=== PATIENT | male | born 2000 | race Caucasian/White ===

== ENCOUNTER 2022-07-05 21:41 | Emergency (ER) | payer OTHER, SELFPAY ==
[2022-07-05 21:48] VITALS: BP 137/75; PULSE 89; RESP 18; TEMP 36.8; O2SAT 99; BMI 23.4
[2022-07-05] MEDS: lidocaine HCL 2 % MULTIDOSE 20 ML VIAL INJECTION (22:50)
--- NOTE | 2022-07-05 23:57 | ED.GENADULT ---
HPI - General Adult General Chief complaint: Laceration/Wound Stated complaint: Sliced open R pinky toe Time Seen by Provider: 07/05/22 21:44 History of Present Illness HPI narrative: 21-year-old young man with concern of laceration to his right 5th toe. He is also incidentally noted to have sustained an abrasion to his left ankle. Apparently horsing around in a dorm room during football camp. Unclear ways cut his foot on. Apparently bled quite a bit. Otherwise feeling well. No bleeding problems. Concerned that bone was visible. Has been able to ambulate. Related Data Home Medications Medication Instructions Recorded Confirmed No Known Home Medications 07/05/22 07/05/22 Allergies Allergy/AdvReac Type Severity Reaction Status Date / Time No Known Drug Allergies Allergy Verified 07/05/22 21:50 Review of Systems Status of ROS: Reports: 6 or more systems reviewed and unremarkable except as noted in History and below [facility] Medical History No significant past medical history Surgical History (Updated 07/05/22 @ 23:10 by Anjum Rivera RN) No significant past surgical history Social History Smoking Status: Never smoker Second hand tobacco smoke exposure: No How often do you have a drink containing alcohol: never How often do you have six or more drinks on one occasion: Never AUDIT-C Alcohol total score: 0 Non-prescribed substance use: denies use Exam Narrative: Exam Narrative: Pleasant. Well built. NAD. Breathing easily. Has a deep laceration about 2.5 cm in length on the plantar surface on the crease of the MTP joint of the 5th toe of the right foot. Also with a scrape over the lateral malleolus of the left ankle. Uppermost capsular layers/fibrous layers but to be visible in the toe laceration. Digital block placed with lidocaine around the 5th toe. This results in fairly good anesthesia though ultimately with repair the most proximal aspect still had some sensation noted on the last 2 sutures. Const: Vital Signs, click to edit/add: Vital Signs - 24 hr 07/05/22 21:48 Temperature 98.2 F Pulse Rate [Right Pulse Oximeter] 89 Respiratory Rate 18 Blood Pressure [Ri ght Upper Arm] 137/75 Pulse Oximetry 99 Oxygen Delivery Me thod Room Air Documenting provider has reviewed patient's vital signs: yes Course Vital Signs Vital signs: Initial Vital Signs Temperature 98.2 F 07/05/22 21:48 Temperature Source Temporal Artery Scan 07/05/22 21:48 Pulse Rate 89 07/05/22 21:48 Respiratory Rate 18 07/05/22 21:48 Blood Pressure 137/75 07/05/22 21:48 Blood Pressure Mean 95 07/05/22 21:48 Blood Pressure Position Sitting 07/05/22 21:48 Pulse Oximetry 99 07/05/22 21:48 Oxygen Delivery Method Room Air 07/05/22 21:48 Vital Signs Temperature 98.2 F 07/05/22 21:48 Pulse Rate 89 07/05/22 21:48 Respiratory Rate 18 07/05/22 21:48 Blood Pressure 137/75 07/05/22 21:48 Pulse Oximetry 99 07/05/22 21:48 Oxygen Delivery Method Room Air 07/05/22 21:48 Temperature 98.4 F 07/06/22 00:07 Pulse Rate 80 07/06/22 00:07 Respiratory Rate 18 07/06/22 00:07 Blood Pressure 125/74 07/06/22 00:07 Pulse Oximetry 99 07/06/22 00:06 Oxygen Delivery Method Room Air 07/06/22 00:06 Medical Decision Making MDM Narrative Medical decision making narrative: Repair being on the plantar foot to carefully clean this wound. It is a relatively clean wound. May have been split open. Though this will require some extensive dorsiflexion and I do not see evidence of bony abnormality in that regard. Digitally blocked as noted above. Cleansed extensively with Hibiclens and water solution by myself. Scrubbed also the abrasion on the outer left ankle. To the ankle antibiotic ointment and Band-Aid was placed. To the right 5th toe this was little difficult to repair deep in this flexion crease at the MTP joint. Placed total of 5 interrupted Ethilon sutures with good wound approximation and control of bleeding. Antibiotic ointment and bandage placed. While I doubt tetanus exposure certainly valuable to for pertussis and diphtheria. We did offer vaccination as is in year 9. He declined preferring to follow up later. See patient discharge plan Discharge Plan Discharge Clinical Impression: Abrasion, Laceration of toe Patient Disposition: Home, Self-Care Condition: Improved Additional Instructions: Can clean up initially as needed. Sutures out in? 10-12 days. Okay to get wet but avoid soaking while sutures are in. Take care to dry this area after showering. Antibiotic ointment for 5 days and then to a dry bandage. Report spreading redness after 2 days, marked increase in pain or swelling, purulent drainage, fever. for scar reduction/wound healing if desired, of course with reference to the outer left ankle-- after scab falls, can apply daily vitamin e oil, emu oil or silicone-containing ointments or bandages.? in particular, protect from the sun for the first 9 - 12 months. Tdap/tetanus due next year. Prescriptions: No Action No Known Home Medications Follow Up/Referrals: Provider,Not a Local [Primary Care Provider] - Stand Alone Forms: [email or web address] Info Instructions
[2022-07-06 00:06] VITALS: BP 125/74; PULSE 80; RESP 18; TEMP 36.9; O2SAT 99
[2022-07-06 00:07] VITALS: BP 125/74; PULSE 80; RESP 18; TEMP 36.9
== END 2022-07-06 00:08 | disposition home or self-care (01) ==
PROVIDERS: Emergency Provider Family Medicine
DX: S91.114A Laceration without foreign body of right lesser toe(s) without damage to nail, initial encounter (principal); Y93.83 Activity, rough housing and horseplay
CPT/HCPCS: 12001; 99283; 99284

== ENCOUNTER 2024-03-01 03:05 | Emergency (ER) | payer OTHER, SELFPAY ==
[2024-03-01] VITALS (8 sets, daily range): BP systolic 112–136; BP diastolic 59–76; PULSE 92–98; RESP 16–18; O2SAT 97–99; BMI 21.9
--- NOTE | 2024-03-01 03:08 | ED.GENADULT ---
HPI - General Adult General Time Seen by Provider: 03:08 Date Seen: 03/01/24 Chief complaint: Nausea/Vomiting Stated complaint: Vomiting Time Seen by Provider: 03/01/24 03:08 Source: patient Mode of arrival: ambulatory Limitations: no limitations History of Present Illness HPI narrative: 23-year-old male who comes in today with vomiting back pain. Patient has been vomiting for about the last 8 hours, no hematemesis. Did have couple of loose stools. Complains of generalized low back pain. Denies urinary symptoms. No fever, chills, runny nose, cough, or sore throat. No known ill contacts. Complains mainly of pain in the hips and low back. Related Data Home Medications ?Medication ?Instructions ?Recorded ?Confirmed No Known Home Medications 07/05/22 03/01/24 Allergies Allergy/AdvReac Type Severity Reaction Status Date / Time No Known Drug Allergies Allergy Verified 03/01/24 03:14 PFSH PFS Medical History No significant past medical history Surgical History (Updated 07/05/22 @ 23:10 by Anjum Rivera RN) No significant past surgical history Social History Smoking Status: Never smoker Do you use any of these nicotine containing products: None Second hand tobacco smoke exposure: No How often do you have a drink containing alcohol: never How often do you have six or more drinks on one occasion: Never AUDIT-C Alcohol total score: 0 Non-prescribed substance use: denies use Exam Narrative: Exam Narrative: General: Well-developed and well-nourished, no acute distress Head: Atraumatic and normocephalic Eyes: Pupils are equal reactive, extraocular motions intact, conjunctiva clear ENT: External nose and ears are normal, posterior pharynx without erythema or exudate Neck: No midline cervical tenderness, full spontaneous range of motion the neck, trachea midline, no adenopathy Heart: Regular rate and rhythm no murmurs or thrills Lungs: Clear to auscultation bilaterally without wheezes or crackles Abdomen: Soft, nontender, nondistended with active bowel sounds Musculoskeletal: No tenderness, deformity, or edema Neurologic: Awake, alert, and oriented x3, no gross focal neurologic deficits, cranial nerves intact as tested Psych: Mood and affect are appropriate Skin: No rashes Const: Vital Signs, click to edit/add: Vital Signs - 24 hr 03/01/24 03:10 03/01/24 03:15 03/01/24 03:31 Pulse Rate 98 96 Pulse Rate [Pulse Oximeter] 97 Respiratory Rate 18 18 18 Blood Pressure 136/73 112/76 Blood Pressure [Ri ght Upper Arm] 136/73 Pulse Oximetry 97 97 98 Oxygen Delivery Me thod Room Air Room Air Room Air Course Course ED Course: Reviewed prior primary care visit from February 2022 which was a general physical exam, no acute concerns. Patient presents today with nausea vomiting, low back pain and hip pain along with body aches. On exam here, patient's widely stable, heart rate 97 which for this patient likely does represent a mild tachycardia. Posterior pharynx without erythema or exudate, no cervical adenopathy, lungs are clear, heart is regular, no abdominal tenderness, no CVA tenderness. Likely gastroenteritis, no evidence for acute cholecystitis or acute appendicitis on exam. Fluids, Toradol, Zofran, and labs are ordered. Anticipate discharge. Reevaluation(s) Time of Reevaluation #1: 04:12 Reevaluation #1: Labs ordered in pill interpreted with by me with normal basic panel, normal hepatic panel, normal magnesium. Patient is feeling better and is stable for discharge. Vital Signs Vital signs: Initial Vital Signs Temperature Source Temporal Artery Scan 03/01/24 03:10 Pulse Rate 97 03/01/24 03:10 Respiratory Rate 18 03/01/24 03:10 Blood Pressure 136/73 03/01/24 03:10 Blood Pressure Mean 94 03/01/24 03:10 Blood Pressure Position Supine 03/01/24 03:10 Pulse Oximetry 97 03/01/24 03:10 Oxygen Delivery Method Room Air 03/01/24 03:10 Vital Signs Pulse Rate 97 03/01/24 03:10 Respiratory Rate 18 03/01/24 03:10 Blood Pressure 136/73 03/01/24 03:10 Pulse Oximetry 97 03/01/24 03:10 Oxygen Delivery Method Room Air 03/01/24 03:10 Pulse Rate 96 03/01/24 03:31 Respiratory Rate 18 03/01/24 03:31 Blood Pressure 112/76 03/01/24 03:31 Pulse Oximetry 98 03/01/24 03:31 Oxygen Delivery Method Room Air 03/01/24 03:31 Medications Administered Medications: Generic Name Dose Route Start Last Admin Trade Name Samuel PRN Reason Stop Dose Admin Sodium Chloride 1,000 mls @ 1,000 mls/hr 03/01/24 03:30 03/01/24 03:39 0.9 % Sodium Chloride 1000 Ml IV 03/01/24 04:29 1,000 mls/hr .Q1H RADHA Administration Ketorolac Tromethamine 15 mg 03/01/24 03:26 03/01/24 03:40 Ketorolac 15 Mg/Ml Inj IVP 03/01/24 03:27 15 mg ONCE ONE Administration Ondansetron HCl 4 mg 03/01/24 03:26 03/01/24 03:40 Ondansetron 2 Mg/Ml Inj IVP 03/01/24 03:27 4 mg ONCE ONE Administration Medical Decision Making Lab Data Labs: Lab Results 03/01/24 Range/Units 03:45 Sodium 134 L (135-149) mmol/L Potassium 3.8 (3.6-5.1) mmol/L Chloride 101 (96-114) mmol/L Carbon Dioxide 24 (20-32) mmol/L Anion Gap 9 (7-15) mEq/L BUN 21 (5-24) mg/dL Creatinine 0.9 (0.5-1.5) mg/dL Estimated Creat Clear 144.55 Estimated GFR 124 ml/min Glucose 122 H (60-115) mg/dL Calcium 9.0 (8.4-10.6) mg/dL Magnesium 1.7 (1.5-2.6) mg/dL Total Bilirubin 1.3 (0.1-1.5) mg/dL Direct Bilirubin 0.2 (0.0-0.5) mg/dL AST 24 (12-35) U/L ALT 19 (4-50) U/L Alkaline Phosphatase 62 (40-150) U/L Total Protein 6.9 (6.0-8.3) g/dL Albumin 4.3 (3.3-5.0) g/dL Discharge Plan Discharge Clinical Impression: Vomiting, Myalgia Patient Disposition: Home, Self-Care Condition: Stable Instructions: Acute Nausea and Vomiting (DC) Additional Instructions: Liquid diet for 24 hours, activity as tolerated Zofran as needed for nausea and vomiting Activity Level: Activity as Tolerated Discharge Diet: Full Liquid Prescriptions: No Action No Known Home Medications Follow Up/Referrals: Provider,Not a Local [Primary Care Provider] - Stand Alone Forms: [employer] Info Instructions
--- OUTSIDE RECORDS SUMMARY | 2024-03-01 03:08 | XMS_ITS | Encounter Summary ---
Author Organization [facility] Address [address] [place] [address] Care Team Providers Care Generation Engineer Name Role Phone Raghu Cervantes MD Primary Care Provider [phone] Reason for Visit * Reason Comments VOMITING Encounter Details Date Type Department Care Team (Late st Contact Info) Description 03/01/2024 Nurse Triage [facility] [address] [place] [address] Raghu Cervantes MD [facility] [place] [address] VOMITING Social History Tobacco Use Types Packs/Day Years Used Date Smoking Tobacco: Never Smokeless Tobacco: Never PHQ-2 Answer Date Recorded PHQ-2 Score 0 03/20/2022 Sex and Gender Information Value Date Recorded Sex Assigned at Not on file Gender Identity Not on file Sexual Orientation Not on file documented as of this encounter Nursing Notes * Quang Silva, RN - 03/01/2024 2:37 AM CST Pt's mother calling with pt on the phone as well. Pt is currently at college. Onset at 2030 last evening of severe abd pain and has vomited x 6. Having severe bodyaches, hip and upper leg pain. Mild diarrhea. Afebrile and denies vomiting blood or bile, blood in stool, or other symptoms. Has been trying to drink fluids but will vomit soon after drinking. Took ibuprofen for the body pain and vomited up medication soon after taking. Reviewed home management and advised to be seen per protocol. Pt agrees with plan. Problem list, allergies, and medications reviewed. Reason for Disposition [1] Constant abdominal pain AND [2] present > 2 hours ??? Patient sounds very sick or weak to the triager Protocols used: [id number] AL BINDER documented in this encounter Plan of Treatment Not on file documented as of this encounter Visit Diagnoses Not on filedocumented in this encounter Care Teams Generation Engineer Relationship Specialty Start Date End Date Raghu Cervantes MD [address] [place] [address] PCP - General Pediatric Medicine 10/17/18 documented as of this encounter
--- OUTSIDE RECORDS SUMMARY | 2024-03-01 03:08 | XMS_ITS | Clinical Summary ---
Author Organization [facility] Address [address] [place] [address] Care Team Providers Care Chemist Organic Name Role Phone Raghu Cervantes MD Primary Care Provider [phone] Source Comments You are receiving this document as you are listed as the primary care provider,follow-up provider, or the patient has been referred to you for consultation.This is in compliance with the Medicare andSumma Healthcaid EHR Incentive Program,which states Providers who transition their patient to another setting of careor provider of care or refers their patient to another provider of care shouldprovide summary care record for each transition of care or referral. Medication [facility]PartDragonRAD Allergies No known active allergies Medications Medication Sig Dispensed Refills Start Date End Date Status triamcinolone acetonide (KENALOG) 0.1 % cream Apply two times a day as needed to affected areas. 454 g 1 03/19/2019 Active Additional Information Patient not taking.Reported on 08/15/2019 methylPREDNISolone (MEDROL 21 TABLET DOSEPACK) 4 MG tablet Follow package directions 21 Tablet 01/15/2021 Active Active Problems Problem Noted Date Diagnosed Date Generalized anxiety disorder 11/02/2023 History of COVID-19 09/22/2020 Overview (09/22/2020): 05/16 with sore throat, stuffiness, short fever. Symptoms over in about 1 week. No chest pain at the time. Since that time, he has completely recovered. Temporomandibular disorder 10/29/2019 Encounters Date Type Department Care Team Description 03/01/2024 Nurse Triage [facility] [address] [place] [address] Raghu Cervantes MD VOMITING from Last 3 Months Immunizations Name Administration Dates Next Due 9vHPV (Gardasil 9) 03/17/2015,02/25/2014, 014 DTaP 10/17/2006, 4,05/20/2002,02/11,2001 Flu Vac (3+ yrs) 03/30/2006,12/23/2004, 4 Flu Vac Preserv Free (3+yrs) 11/27/2008,11/22/19 08,01/09/2007 H1n1 Miv Sanofi 3+ Yr (Injected) 02/15/2009,12/27,01/14/2009 HepA Ped/Adol (1-18 yrs) 03/17/2015,12/24/2013 HepB Ped/Adol (0-18 yrs) 05/20/2002,02/11/2002,1 Hib (ActHIB) 02/11/2003,05/20/2002,2001 IPV (Polio) 10/17/2006, 3,02/11/2002,12/16 Influenza IIV4 (Quadrivalent ) 0.5mL (25041) 02/15/2022,10/24/2020,12/16/2019,12/11,11/14/2017 Influenza, Unspecified Formulation 12/14/2015, MCV4 Menveo 2m.+ (two vial) 08/15/2019 MMR 10/27/2005,11/27/2002 Meningococcal MCV4, Unspecif ied Formulation 12/24/2013,05/20/2002 PCV13 (Prevnar) 05/20/2002, 2,2001,12/03 Pfizer Bivalent 12+ 02/15/2022 Pfizer Monovalent 12+ Purple Top 03/02/2021,06/27,07/02/2020 Tdap 12/23/2013 Varicella 04/05/2006,11/27/2002 Family History Relation Name Status Comments Father Alive Mother Alive Brother Alive Social History Tobacco Use Types Packs/Day Years Used Date Smoking Tobacco: Never Smokeless Tobacco: Never PHQ-2 Answer Date Recorded PHQ-2 Score 0 03/20/2022 Sex and Gender Information Value Date Recorded Sex Assigned at Not on file Gender Identity Not on file Sexual Orientation Not on file Last Filed Vital Signs Vital Sign Reading Time Taken Comments Blood Pressure 110/65 03/20/2022 1:19 PM LADLE PULLER Pulse 55 03/20/2022 1:19 PM LADLE PULLER Temperature 36.7 C (98 F) 01/15/2021 3:26 PM LADLE PULLER Respiratory Rate 14 01/15/2021 3:26 PM LADLE PULLER Oxygen Saturation 100% 01/15/2021 3:26 PM LADLE PULLER Inhaled Oxygen Concentration - - Weight 87.3 kg (192 lb 8 oz) 03/20/2022 1:19 PM LADLE PULLER Height 190.5 cm (6' 3) 03/20/2022 1:19 PM LADLE PULLER Body Mass Index 24.06 03/20/2022 1:19 PM LADLE PULLER Plan of Treatment Health Maintenance Due Date Last Done Comments Hep C Screening (Preventive Services) 2001 Adult Preventive Visit 03/20/2023 , 09/20/2020, 08/15/2019, Additional history exists COVID-19 Vaccine ( season) 2023 02/15/2022, 03/02/2021, 07/23/2020, Additional history exists Influenza (#1) 2023 02/15/2022, 08/10/2020, 12/16/2019, Additional history exists DTaP/Tdap/Td (7 - Tdap) 12/24/2023 12/24/19 14, 10/17/2006, 09/17/2003, Additional history exists Zoster/Shingles (1 of 2) 10/27/2051 HepB Completed 05/20/2002, 01/26, 2001 Pneumococcal Aged Out 05/20/2002, 01/26, 2001, Additional history exists No longer eligible based on patient's age to complete this topic Hib Completed 02/11/2003, 04/27, 02/11/2002, Additional history exists Varicella Completed 04/05/2006, 11/27/2002 IPV (Polio) Completed 10/17/2006, 04/27, 02/11/2002, Additional history exists HPV Vaccine Completed 03/17/2015, 01/28, 12/24/2013 HepA Completed 03/17/2015, 12/24/2013 MCV4 Completed 08/15/2019, 11/27, 05/20/2002 HIV Screening (Preventive Services) Completed 03/20/2022, 03/11/2021, 08/15/2019 Procedures Procedure Name Priority Date/Time Associated Diagnosis Comments HIV 1/2 AG/AB 4TH GEN Routine 03/20/2022 1:59 PM LADLE PULLER Adult general medical examination from Last 3 Months or Most Recently Relevant to Health Maintenance Results * HIV 1/2 Ag/Ab 4th Generation (03/20/2022 1:59 PM LADLE PULLER) HIV 1/2 Antigen/Antib alicia (4th generation) Negative (Non Reactive) Negative (Non Reactive) 03/20/2022 7:46 PM LADLE PULLER [facility] Comment:HIV-1 p24 Antigen an d HIV-1/HIV-2 Antibody not detected Blood Venipuncture / Unknown 03/20/2022 1:59 PM LADLE PULLER 03/20/2022 1:59 PM LADLE PULLER Raghu Cervantes MD [facility] [address] [place] [address], [facility] from Last 3 Months or Most Recently Relevant to Health Maintenance Care Teams Chemist Organic Relationship Specialty Start Date End Date Raghu Cervantes MD [address] [place], [place] [phone] PCP - General Pediatric Medicine 10/17/18
--- OUTSIDE RECORDS SUMMARY | 2024-03-01 03:35 | XMS_ITS | Clinical Summary ---
Author Organization [facility] Address [address] [place] [address] Care Team Providers Care Zoo Veterinarian Name Role Phone Raghu Cervantes MD Primary Care Provider [phone] Source Comments You are receiving this document as you are listed as the primary care provider,follow-up provider, or the patient has been referred to you for consultation.This is in compliance with the Medicare and[facility] Hospitalcaid EHR Incentive Program,which states Providers who transition their patient to another setting of careor provider of care or refers their patient to another provider of care shouldprovide summary care record for each transition of care or referral. [facility] Allergies No known active allergies Medications Medication [...] Description 03/01/2024 Nurse Triage [facility] [address] [place] [address] Raghu Cervantes MD VOMITING from Last 3 [...] 10/17/2006, 3,02/11/2002,12/16 Influenza IIV4 (Quadrivalent ) 0.5mL (98335) 02/15/2022,10/24/2020,12/16/2019,12/11,11/14/2017 Influenza, Unspecified Formulation 12/14/2015, MCV4 Menveo [...] Comments Blood Pressure 110/65 03/20/2022 1:19 PM AUTOMOTIVE UPHOLSTERER Pulse 55 03/20/2022 1:19 PM AUTOMOTIVE UPHOLSTERER Temperature 36.7 C (98 F) 01/15/2021 3:26 PM AUTOMOTIVE UPHOLSTERER Respiratory Rate 14 01/15/2021 3:26 PM AUTOMOTIVE UPHOLSTERER Oxygen Saturation 100% 01/15/2021 3:26 PM AUTOMOTIVE UPHOLSTERER Inhaled Oxygen Concentration - - Weight 87.3 kg (192 lb 8 oz) 03/20/2022 1:19 PM AUTOMOTIVE UPHOLSTERER Height 190.5 cm (6' 3) 03/20/2022 1:19 PM AUTOMOTIVE UPHOLSTERER Body Mass Index 24.06 03/20/2022 1:19 PM AUTOMOTIVE UPHOLSTERER Plan of Treatment Health Maintenance Due Date [...] AG/AB 4TH GEN Routine 03/20/2022 1:59 PM AUTOMOTIVE UPHOLSTERER Adult general medical examination from Last 3 Months or Most Recently Relevant to Health Maintenance Results * HIV 1/2 Ag/Ab 4th Generation (03/20/2022 1:59 PM AUTOMOTIVE UPHOLSTERER) HIV 1/2 Antigen/Antib alicia (4th generation) Negative (Non Reactive) Negative (Non Reactive) 03/20/2022 7:46 PM AUTOMOTIVE UPHOLSTERER [facility] Comment:HIV-1 p24 Antigen an d HIV-1/HIV-2 Antibody not detected Blood Venipuncture / Unknown 03/20/2022 1:59 PM AUTOMOTIVE UPHOLSTERER 03/20/2022 1:59 PM AUTOMOTIVE UPHOLSTERER Raghu Cervantes MD [facility] [address] [place] [address], [facility] from Last 3 Months or Most Recently Relevant to Health Maintenance Care Teams Zoo Veterinarian Relationship Specialty Start Date End Date Raghu Cervantes MD [address] [place], [place] [id number] PCP - General Pediatric Medicine 10/17/18
--- OUTSIDE RECORDS SUMMARY | 2024-03-01 03:35 | XMS_ITS | Encounter Summary ---
Author Organization [facility] Address [address] [place] [address] Care Team Providers Care Staff Research Scientist Name Role Phone Raghu Cervantes MD Primary Care Provider [phone] Reason for Visit * Reason Comments VOMITING Encounter Details Date Type Department Care Team (Late st Contact Info) Description 03/01/2024 Nurse Triage [facility] [address] [place] [address] Raghu Cervantes MD [facility] [place] [address] VOMITING Social History Tobacco Use [...] or weak to the triager Protocols used: [id number] RIAL MAN documented in this encounter Plan of Treatment Not on file documented as of this encounter Visit Diagnoses Not on filedocumented in this encounter Care Teams Staff Research Scientist Relationship Specialty Start Date End Date Raghu Cervantes MD [address] [place] [address] PCP - General Pediatric Medicine 10/17/18 documented as of this encounter
[2024-03-01] MEDS: 0.9 % SODIUM CHLORIDE 1000 ml 1,000 ML IV (03:39)
[2024-03-01] MEDS: ONDANSETRON 2 MG/ML inj 4 MG IVP (03:40)
[2024-03-01] MEDS: KETOROLAC 15 MG/ML inj IVP (03:40)
[2024-03-01 04:01] LABS: Albumin* 4.3 g/dL (3.3-5.0); Chloride* 101 mmol/L (96-114); Potassium* 3.8 mmol/L (3.6-5.1); Sodium* 134 mmol/L (135-149)
[2024-03-01 04:03] LABS: Creatinine* 0.9 mg/dL (0.5-1.5); Est. Creatinine Clearance* 144.55; Estimated Glomerular Filt Rate 124 ml/min
[2024-03-01 04:04] LABS: Alanine Aminotransferase* 19 U/L (4-50); Alkaline Phosphatase* 62 U/L (40-150); Anion Gap 9 mEq/L (7-15); Aspartate Amino Transferase* 24 U/L (12-35); Bilirubin Direct* 0.2 mg/dL (0.0-0.5); Bilirubin Total* 1.3 mg/dL (0.1-1.5); Blood Urea Nitrogen* 21 mg/dL (5-24); Carbon Dioxide* 24 mmol/L (20-32); Glucose* 122 mg/dL (60-115); Total Protein* 6.9 g/dL (6.0-8.3)
[2024-03-01 04:05] LABS: Magnesium* 1.7 mg/dL (1.5-2.6)
== END 2024-03-01 04:42 | disposition home or self-care (01) ==
LOC: ED 03:33
PROVIDERS: Emergency Provider Family Medicine
DX: R11.10 Vomiting, unspecified (principal); M79.10 Myalgia, unspecified site
CPT/HCPCS: 36415; 80048; 80076; 83735; 96374; 96375; 99283; 99284; J1885; J2405; J7030